=== PATIENT | male | born 1985 | race Caucasian/White ===

== ENCOUNTER 2016-12-03 21:42 | Inpatient (IN) | payer MEDICAID ==
[~2016-12-03] VITALS: Ht 182.9 cm; Wt 88.5 kg
[~2016-12-03 21:42] MED LIST: BENZ0.5T6 PO; HALO5TAB23 PO; HALOD50I IM
[2016-12-03 22:18] LABS: BASOPHILS # (AUTO) 0.07 K/uL (0.00-0.20); BASOPHILS % (AUTO) 0.8 % (0.0-2.0); EOSINOPHILS # (AUTO) 0.11 K/uL (0.00-0.70); EOSINOPHILS % (AUTO) 1.24 % (1.0-6.0); HEMOGLOBIN 14.4 g/dL (13.5-17.5); LYMPHOCYTES # (AUTO) 2.7 K/uL (1.0-4.8); LYMPHOCYTES % (AUTO) 29.2 % (22.0-44.0); MEAN CORPUSCULAR HEMOGLOBIN 28.7 pg (26.0-34.0); MEAN CORPUSCULAR HGB CONC 33.4 G/dL (31.0-37.0); MEAN CORPUSCULAR VOLUME 86 fL (80-100); MONOCYTES # (AUTO) 0.6 K/uL (0.1-1.0); MONOCYTES % (AUTO) 6.7 % (2.0-9.0); NEUTROPHILS # (AUTO) 5.6 K/uL (1.8-7.7); NEUTROPHILS % (AUTO) 62.1 % (40.0-70.0); PLATELET COUNT (AUTO) 226 K/uL (150-450); RED CELL DISTRIBUTION WIDTH 14.5 % (11.5-14.5); WHITE BLOOD COUNT (AUTO) 9.1 K/uL (4.5-11.0)
[2016-12-03 22:20] LABS: ANION GAP 9 mmol/L (8-16); CALCIUM, TOTAL 8.6 mg/dL (8.8-10.5); CARBON DIOXIDE 27 mmol/L (22-29); CHLORIDE 107 mmol/L (98-107); CREATININE 1.11 mg/dL (0.60-1.30); GLOMERULAR FILTR. RATE CALC > 60 mL/min (>60); POTASSIUM 3.8 mmol/L (3.5-5.1); SODIUM SERUM 143 mmol/L (136-145); UREA NITROGEN, BLOOD 13 mg/dL (7-18)
[2016-12-03 22:26] LABS: ALANINE AMINOTRANSFERASE 20 U/L (12-78); ALBUMIN 3.9 g/dL (3.4-5.0); ASPARTATE AMINOTRANSFERASE 18 U/L (15-37); BILIRUBIN,TOTAL 0.4 mg/dL (0.1-1.0); TOTAL PROTEIN, SERUM 6.7 g/dL (6.4-8.2)
[2016-12-04] MEDS ORDERED: HALOPERIDOL 5 MG TABLET PO PRN (00:15)
[2016-12-04] MEDS ORDERED: ZOLPIDEM TARTRATE 10 MG TABLET PO PRN (00:15)
[2016-12-04] MEDS ORDERED: LORazepam 2 MG TABLET PO PRN (00:15)
[2016-12-04 13:03] VITALS: BP 120/69
[2016-12-04] MEDS ORDERED: INFLUENZA VIRUS VACCINE QVS 2016-17 (3YR+)/PF 60 MCG/0.5 ML SYRINGE IM ONE (15:30)
[2016-12-04 16:03] VITALS: BP 125/80
[2016-12-05 06:36] VITALS: BP 115/70
[2016-12-05 08:04] VITALS: BP 120/70
[2016-12-05] MEDS ORDERED: HALOPERIDOL DECANOATE 50 MG/ML VIAL IM SCH (09:00)
[2016-12-05] MEDS: BENZTROPINE MESYLATE 0.5 MG TABLET PO SCH ×2 (09:47→17:22)
[2016-12-05] MEDS: HALOPERIDOL 5 MG TABLET PO SCH ×2 (09:47→17:22)
[2016-12-05 16:00] VITALS: BP 110/68
[2016-12-06 07:05] VITALS: BP 104/82
[2016-12-06 08:04] VITALS: BP 127/74
[2016-12-06] MEDS: BENZTROPINE MESYLATE 0.5 MG TABLET PO SCH ×2 (09:25→16:56)
[2016-12-06] MEDS: HALOPERIDOL 5 MG TABLET PO SCH ×2 (09:25→16:56)
[2016-12-06 16:00] VITALS: BP 112/68
[2016-12-07 06:45] VITALS: BP 127/83
[2016-12-07 08:04] VITALS: BP 130/76
[2016-12-07] MEDS: HALOPERIDOL 5 MG TABLET PO SCH ×2 (08:20→17:09)
[2016-12-07] MEDS: BENZTROPINE MESYLATE 0.5 MG TABLET PO SCH ×2 (08:20→17:09)
[2016-12-07 16:09] VITALS: BP 116/75
[2016-12-08 06:13] VITALS: BP 115/70
[2016-12-08] MEDS ORDERED: HALOD50I IM (08:15)
[2016-12-08 08:18] VITALS: BP 106/62
[2016-12-08] MEDS: HALOPERIDOL 5 MG TABLET PO SCH ×2 (09:18→17:05)
[2016-12-08] MEDS: BENZTROPINE MESYLATE 0.5 MG TABLET PO SCH ×2 (09:18→17:05)
== END 2016-12-08 18:20 | disposition home or self-care (01) | DRG 750 ==
LOC: EMS 21:43 → EEVIPCON 21:43 → UNDOADMIN 12-04 08:52 → B3A 12-04 08:52
PROVIDERS: ADMIT Psychiatry & Neurology Psychiatry; ATTEND Psychiatry & Neurology Psychiatry
DX: F25.0 Schizoaffective disorder, bipolar type (principal); K64.9 Unspecified hemorrhoids; Z79.899 Other long term (current) drug therapy; Z28.21 Immunization not carried out because of patient refusal
CPT/HCPCS: 99285; G0480; J1631

== ENCOUNTER 2022-04-16 16:22 | Inpatient (IN) | payer MEDICAID ==
[~2022-04-16] VITALS: Ht 182.9 cm; Wt 81.6 kg
[~2022-04-16 16:22] MED LIST changes: +BENZ0.5T49 PO; -BENZ0.5T6 PO
[2022-04-16] MEDS ORDERED: LORazepam 2 MG TABLET PO PRN (20:45)
[2022-04-16] MEDS ORDERED: HALOPERIDOL 5 MG TABLET PO PRN (20:45)
[2022-04-16] MEDS ORDERED: ZOLPIDEM TARTRATE 10 MG TABLET PO PRN (20:45)
[2022-04-16 21:18] VITALS: BP 121/68
[2022-04-17] MEDS ORDERED: NICOTINE 14 MG/24 HOUR PATCH TD PRN ×2 (07:00→07:15)
[2022-04-17] MEDS ORDERED: MAGNESIUM HYDROXIDE SUSPENSION 30 ML UDCUP PO PRN ×2 (07:00→07:15)
[2022-04-17] MEDS ORDERED: ALBUTEROL SULFATE HFA 90 MCG/PUFF 8 GM INHALER IH PRN ×2 (07:00→07:15)
[2022-04-17] MEDS ORDERED: LOPERAMIDE HCL 2 MG CAPSULE PO PRN ×2 (07:00→07:15)
[2022-04-17] MEDS ORDERED: ONDANSETRON HCL 4 MG TABLET PO PRN ×2 (07:00→07:15)
[2022-04-17] MEDS ORDERED: MAG HYDROX/AL HYDROX/SIMETH ES 30 ML SUSPENSION UDCUP PO PRN ×2 (07:00→07:15)
[2022-04-17] MEDS ORDERED: IBUPROFEN 400 MG TABLET PO PRN ×2 (07:00→07:15)
[2022-04-17] MEDS ORDERED: CloNIDine HCL 0.1 MG TABLET PO PRN ×2 (07:00→07:15)
[2022-04-17] MEDS ORDERED: DOCUSATE SODIUM 100 MG CAPSULE PO PRN ×2 (07:00→07:15)
[2022-04-17] MEDS ORDERED: GuaiFENesin/D-METHORPHAN [SUGAR-FREE] 200-20MG/10 ML SYRUP UDCUP PO PRN ×2 (07:00→07:15)
[2022-04-17] MEDS ORDERED: ACETAMINOPHEN 325 MG TABLET PO PRN ×2 (07:00→07:15)
[2022-04-17] MEDS ORDERED: PETROLATUM,WHITE 28 GM JELLY TP PRN ×2 (07:00→07:15)
[2022-04-17 08:27] VITALS: BP 106/66
[2022-04-17] MEDS: RisperiDONE 2 MG TABLET PO SCH ×2 (10:00→21:00)
[2022-04-17 20:18] VITALS: BP 124/79
[2022-04-18] MEDS: RisperiDONE 2 MG TABLET PO SCH (08:13)
[2022-04-18 09:38] VITALS: BP 117/70
[2022-04-18] MEDS ORDERED: RISP2TAB86 PO (13:07)
== END 2022-04-18 15:30 | disposition left against medical advice (07) | DRG 753 ==
LOC: B2S 20:58
PROVIDERS: ADMIT Psychiatry & Neurology Psychiatry; ATTEND Psychiatry & Neurology Psychiatry
DX: F31.64 Bipolar disorder, current episode mixed, severe, with psychotic features (principal); E78.5 Hyperlipidemia, unspecified; F41.9 Anxiety disorder, unspecified; G47.00 Insomnia, unspecified; Z53.29 Procedure and treatment not carried out because of patient's decision for other reasons; Z20.822 Contact with and (suspected) exposure to COVID-19; Z59.00 Homelessness unspecified

== ENCOUNTER 2022-06-04 14:47 | Inpatient (IN) | payer MEDICAID, OTHER ==
[~2022-06-04] VITALS: Ht 182.9 cm; Wt 80.3 kg
[~2022-06-04 14:47] MED LIST changes: -BENZ0.5T49 PO; -HALO5TAB23 PO; -HALOD50I IM; +RISP2TAB86 PO
[2022-06-04] MEDS ORDERED: LAMO100 PO (15:46)
[2022-06-04] MEDS ORDERED: OLAN2.5T29 PO (15:46)
[2022-06-04 16:24] LABS: COVID AG,FIA SOURCE NASOPHARYNGEAL
[2022-06-04] MEDS ORDERED: HALOPERIDOL 5 MG TABLET PO PRN (17:15)
[2022-06-04] MEDS ORDERED: ZOLPIDEM TARTRATE 10 MG TABLET PO PRN (17:15)
[2022-06-04] MEDS ORDERED: LORazepam 2 MG TABLET PO PRN (17:15)
[2022-06-05] MEDS ORDERED: DIAZEPAM 5 MG/ML 2 ML SYRINGE ONE (06:10)
[2022-06-05] MEDS ORDERED: HALOPERIDOL LACTATE 5 MG/ML VIAL ONE (06:10)
[2022-06-05] MEDS ORDERED: DiphenhydrAMINE HCL 50 MG/ML VIAL ONE (06:10)
[2022-06-05] MEDS ORDERED: DIAZEPAM 5 MG/ML 2 ML SYRINGE IM ONE (06:30)
[2022-06-05] MEDS ORDERED: DiphenhydrAMINE HCL 50 MG/ML VIAL IM ONE (06:30)
[2022-06-05] MEDS ORDERED: HALOPERIDOL LACTATE 5 MG/ML VIAL IM ONE (06:30)
[2022-06-05 08:00] LABS: AMPHET/METH SCREEN,URINE NEGATIVE (NEGATIVE); BARBITURATE SCREEN, URINE NEGATIVE (NEGATIVE); BENZODIAZEPINES SCREEN,URINE NEGATIVE (NEGATIVE); CANNABINOID SCREEN,URINE NEGATIVE (NEGATIVE); COCAINE SCREEN,URINE NEGATIVE (NEGATIVE); METHADONE SCREEN, URINE NEGATIVE (NEGATIVE); OPIATE SCREEN,URINE NEGATIVE (NEGATIVE); PHENCYCLIDINE SCREEN,URINE NEGATIVE (NEGATIVE)
[2022-06-05 16:29] VITALS: BP 125/63
[2022-06-06] VITALS: BP 120/65
[2022-06-06] MEDS ORDERED: LOPERAMIDE HCL 2 MG CAPSULE PO PRN (07:45)
[2022-06-06] MEDS ORDERED: NICOTINE 14 MG/24 HOUR PATCH TD PRN (07:45)
[2022-06-06] MEDS ORDERED: MAG HYDROX/AL HYDROX/SIMETH ES 30 ML SUSPENSION UDCUP PO PRN (07:45)
[2022-06-06] MEDS ORDERED: PETROLATUM,WHITE 28 GM JELLY TP PRN (07:45)
[2022-06-06] MEDS ORDERED: DOCUSATE SODIUM 100 MG CAPSULE PO PRN (07:45)
[2022-06-06] MEDS ORDERED: GuaiFENesin/D-METHORPHAN [SUGAR-FREE] 200-20MG/10 ML SYRUP UDCUP PO PRN (07:45)
[2022-06-06] MEDS ORDERED: MAGNESIUM HYDROXIDE SUSPENSION 30 ML UDCUP PO PRN (07:45)
[2022-06-06] MEDS ORDERED: ONDANSETRON HCL 4 MG TABLET PO PRN (07:45)
[2022-06-06] MEDS ORDERED: IBUPROFEN 400 MG TABLET PO PRN (07:45)
[2022-06-06] MEDS ORDERED: ALBUTEROL SULFATE HFA 90 MCG/PUFF 8 GM INHALER IH PRN (07:45)
[2022-06-06] MEDS ORDERED: CloNIDine HCL 0.1 MG TABLET PO PRN (07:45)
[2022-06-06] MEDS ORDERED: ACETAMINOPHEN 325 MG TABLET PO PRN (07:45)
[2022-06-06 08:06] VITALS: BP 126/67
[2022-06-06] MEDS: RisperiDONE 2 MG TABLET PO SCH ×3 (09:45→21:00)
[2022-06-06] MEDS: LamoTRIgine 25 MG TABLET PO SCH (13:59)
[2022-06-06 20:28] VITALS: BP 134/88
[2022-06-07 08:44] VITALS: BP 118/72
[2022-06-07] MEDS: LamoTRIgine 25 MG TABLET PO SCH (08:57)
[2022-06-07] MEDS: RisperiDONE 2 MG TABLET PO SCH ×2 (09:00→20:24)
[2022-06-08 08:07] VITALS: BP 111/70
[2022-06-08] MEDS: LamoTRIgine 25 MG TABLET PO SCH (08:19)
[2022-06-08] MEDS: RisperiDONE 2 MG TABLET PO SCH ×2 (08:20→21:00)
[2022-06-08 20:19] VITALS: BP 116/65
[2022-06-09 08:04] VITALS: BP 111/70
[2022-06-09] MEDS: LamoTRIgine 25 MG TABLET PO SCH (08:08)
[2022-06-09] MEDS: RisperiDONE 2 MG TABLET PO SCH ×2 (08:08→20:22)
[2022-06-09 20:13] VITALS: BP 113/73
[2022-06-10 04:11] VITALS: BP 126/75
[2022-06-10] MEDS: LamoTRIgine 25 MG TABLET PO SCH (08:10)
[2022-06-10] MEDS: RisperiDONE 2 MG TABLET PO SCH ×2 (08:11→20:41)
[2022-06-10 08:16] VITALS: BP 103/61
[2022-06-10 20:10] VITALS: BP 118/64
[2022-06-11 04:43] VITALS: BP 108/65
[2022-06-11 08:07] VITALS: BP 99/50
[2022-06-11] MEDS: LamoTRIgine 25 MG TABLET PO SCH (08:24)
[2022-06-11] MEDS: RisperiDONE 2 MG TABLET PO SCH (08:24)
[2022-06-11] MEDS: QUEtiapine FUMARATE 100 MG TABLET PO SCH ×2 (09:59→20:05)
[2022-06-11 10:41] LABS: GLUCOMETER DEV NAME(LOC) POC.BV
[2022-06-11 20:14] VITALS: BP 110/70
[2022-06-12 07:38] LABS: EOSINOPHILS % (AUTO) 2.1 % (1.0-6.0); HEMATOCRIT 42.4 % (41-53); HEMOGLOBIN 14.2 g/dL (13.5-17.5); LYMPHOCYTES # (AUTO) 2.4 K/uL (1.0-4.8); LYMPHOCYTES % (AUTO) 44.1 % (22.0-44.0); MEAN CORPUSCULAR HGB CONC 33.5 G/dL (31.0-37.0); MEAN CORPUSCULAR VOLUME 90 fL (80-100); MONOCYTES # (AUTO) 0.4 K/uL (0.1-1.0); MONOCYTES % (AUTO) 6.6 % (2.0-9.0); NEUTROPHILS # (AUTO) 2.5 K/uL (1.8-7.7); NEUTROPHILS % (AUTO) 46.2 % (40.0-70.0); PLATELET COUNT (AUTO) 229 K/uL (150-450); RED BLOOD CELL COUNT(AUTO) 4.72 MIL/uL (4.50-5.90); RED CELL DISTRIBUTION WIDTH 13.6 % (11.5-14.5)
[2022-06-12 07:54] LABS: HEMOGLOBIN A1C 5.3 % (3.8-5.6)
[2022-06-12 08:04] LABS: ALANINE AMINOTRANSFERASE 32 U/L (12-78); ALKALINE PHOSPHATASE 65 U/L (46-116); ANION GAP 5 mmol/L (8-16); ASPARTATE AMINOTRANSFERASE 16 U/L (15-37); BILIRUBIN,TOTAL 0.5 mg/dL (0.1-1.0); CALCIUM, TOTAL 9.3 mg/dL (8.8-10.5); CARBON DIOXIDE 33 mmol/L (22-29); CHLORIDE 106 mmol/L (98-107); CHOL/HDL RATIO 1.8 (4.2-7.3); CHOLESTEROL 143 mg/dL (131-200); CREATININE 0.98 mg/dL (0.60-1.30); FREE T4 (FREE THYROXINE) 0.98 ng/dL (0.76-1.46); GLUCOSE,RANDOM 88 mg/dL (70-110); HDL CHOLESTEROL 79 mg/dL (40-60); LDL CHOL (CALC.) 58 mg/dL (0-130); POTASSIUM 4.5 mmol/L (3.5-5.1); SODIUM SERUM 144 mmol/L (136-145); THYROID STIMULATING HORMONE 1.56 uIU/mL (0.36-3.74); TOTAL PROTEIN, SERUM 6.9 g/dL (6.4-8.2); TRIGLYCERIDES 31 mg/dL (15-150); UREA NITROGEN, BLOOD 7 mg/dL (7-18)
[2022-06-12 08:06] LABS: GLOMERULAR FILTR. RATE CALC > 60 mL/min (>60)
[2022-06-12 08:24] VITALS: BP 119/68
[2022-06-12] MEDS: LamoTRIgine 25 MG TABLET PO SCH (08:31)
[2022-06-12] MEDS: QUEtiapine FUMARATE 100 MG TABLET PO SCH ×2 (08:31→20:39)
[2022-06-12 20:34] VITALS: BP 114/64
[2022-06-13] MEDS: LamoTRIgine 25 MG TABLET PO SCH (08:21)
[2022-06-13] MEDS: QUEtiapine FUMARATE 100 MG TABLET PO SCH ×2 (08:21→20:14)
[2022-06-13 08:33] VITALS: BP 118/66
[2022-06-13 20:17] VITALS: BP 118/66
[2022-06-14] MEDS: LamoTRIgine 25 MG TABLET PO SCH (08:11)
[2022-06-14] MEDS: QUEtiapine FUMARATE 100 MG TABLET PO SCH ×2 (08:11→20:11)
[2022-06-14 10:30] VITALS: BP 113/67
[2022-06-14 20:12] VITALS: BP 111/63
[2022-06-15] MEDS: QUEtiapine FUMARATE 100 MG TABLET PO SCH ×2 (08:24→20:05)
[2022-06-15] MEDS: LamoTRIgine 25 MG TABLET PO SCH (08:24)
[2022-06-15 08:43] VITALS: BP 121/87
[2022-06-15 20:10] VITALS: BP 107/66
[2022-06-16] MEDS: QUEtiapine FUMARATE 100 MG TABLET PO SCH ×2 (08:27→20:18)
[2022-06-16] MEDS: LamoTRIgine 25 MG TABLET PO SCH (08:27)
[2022-06-16 08:54] VITALS: BP 118/69
[2022-06-16 20:06] VITALS: BP 115/75
[2022-06-17] MEDS: QUEtiapine FUMARATE 100 MG TABLET PO SCH ×2 (08:19→20:57)
[2022-06-17] MEDS: LamoTRIgine 25 MG TABLET PO SCH (08:19)
[2022-06-17 10:24] VITALS: BP 103/55
[2022-06-17 21:30] VITALS: BP 113/74
[2022-06-18 04:23] VITALS: BP 117/75
[2022-06-18] MEDS ORDERED: LAMO25TA66 PO (08:25)
[2022-06-18] MEDS ORDERED: QUET100T34 PO (08:25)
[2022-06-18] MEDS: QUEtiapine FUMARATE 100 MG TABLET PO SCH (09:01)
[2022-06-18] MEDS: LamoTRIgine 25 MG TABLET PO SCH (09:01)
[2022-06-18 09:28] VITALS: BP 113/72
== END 2022-06-18 14:02 | disposition home or self-care (01) | DRG 753 ==
LOC: EMS 14:47 → B3A 06-05 11:55
PROVIDERS: ADMIT Psychiatry & Neurology Psychiatry; ATTEND Psychiatry & Neurology Psychiatry
DX: F31.5 Bipolar disorder, current episode depressed, severe, with psychotic features (principal); Z91.14 Patient's other noncompliance with medication regimen; R56.9 Unspecified convulsions; Z20.822 Contact with and (suspected) exposure to COVID-19; F99 Mental disorder, not otherwise specified; K64.9 Unspecified hemorrhoids; G47.00 Insomnia, unspecified; Z59.00 Homelessness unspecified; Z79.899 Other long term (current) drug therapy
CPT/HCPCS: 70450; 72125; 80053; 80061; 83036; 84436; 84439; 84443; 85025; 86592; 87081; 99285; J1200; J1630